=== PATIENT | female | born 1990 | race Asian ===

== ENCOUNTER 2018-04-30 02:26 | Emergency (ER) | payer SELFPAY ==
[2018-04-30 02:41] VITALS: TEMP 99.2; BMI 25.7
--- NOTE | 2018-04-30 02:45 | PDOC ---
Attending Attestation - Resident Resident Name: IgorNatasha - ED Attending Attestation I have performed the following: I have examined & evaluated the patient, The case was reviewed & discussed with the resident, I agree w/resident's findings & plan - HPI HPI: 04/30/18 06:28 Pt comes with heart racing and arm pain and anxiety. - Physicial Exam PE: 04/30/18 06:29 Agree with resident exam - Medical Decision Making 04/30/18 06:29 Cardiac enzymes, flu and labs normal. Pt appears well. Vitals normal. EKG NSR; she will be discharged and counselled Heart Score/ECG Review - ECG Intrepretation Rhythm: Regular Rhythm - [place]: Right [place] Deviation - P and AR Delta Wave(s) Present: No WPW: No - QRS Poor R Wave Progression: No Q Wave Present: No - ST and T Early Repolarization: No Non Specific ST-T Wave changes: No
--- NOTE | 2018-04-30 03:29 | PDOC ---
History of Present Illness - History of Present Illness Initial Comments: Cordelia Chou is a 27yo woman with a possible h/o anxiety (pt reports she has not been officially diagnosed with anxiety) who presents with racing heart and left chest, left arm discomfort that started acutely overnight. Ms Chou reports that she was laying in bed tonight having a snack when she suddenly felt like her heart was beating very quickly. She additionally felt that there was an unusual feeling in her left arm and left lateral chest, though she is unable to describe the sensation other than "uncomfortable." She denies any shortness of breath, lightheadedness, nausea/vomiting, or pain at the time. She does endorse recent subjective fevers, sore throat, and change in bowel habits over the past week; she states that she had some mild constipation last week, but she has had bowel urgency for the past few days. She has had one formed BM every other day, which is typical, but reports that they are "explosive." Ms Chou has not had a flu shot. She had a similar episode about 2 years ago and was told she had anxiety at that time. However, she has not followed up and has never been treated for anxiety or depression. <Natasha Costa - Last Filed: 04/30/18 05:31> <Trena Francis - Last Filed: 04/30/18 06:27> - General Chief Complaint: Irregular Heart Beat Stated Complaint: RAPID HEART BEAT/ARM PAIN Time Seen by Provider: 04/30/18 02:37 Past History - Past Medical History Anemia: Yes - Suicide/Smoking/Psychosocial Hx Smoking History: Never smoked Have you smoked in the past 12 months: No Information on smoking cessation initiated: No Hx Alcohol Use: No Drug/Substance Use Hx: No <Natasha Costa - Last Filed: 04/30/18 05:31> <Trena Francis - Last Filed: 04/30/18 06:27> - Past Medical History Allergies/Adverse Reactions: Allergies Allergy/AdvReac Type Severity Reaction Status Date / Time No Known Allergies Allergy Verified 04/30/18 02:39 Home Medications: Ambulatory Orders NK [No Known Home Medication] 03/03/16 Review of Systems - Review of Systems Comments:: General: No fevers, no chills, no weight or appetite change, no malaise HEENT: No changes in vision, no changes in hearing, no congestion. +sore throat CV: No chest pain, no LE edema. +Racing heart Pulm: No SOB, no wheezing. +cough GI: No nausea or vomiting, no melena. +urgency for one week : No frequency, no urgency, no dysuria Musc: No back pain, no joint swelling, no recent injury Skin: No rash, no lesions, no erythema Endo: No excessive thirst, no heat/cold intolerance Heme: No unusual bruising or bleeding, no swollen glands Neuro: No syncope, no numbness/tingling, no focal weakness Vasc: No claudication Psych: No recent change in mood, no SI or HI <IgorNatasha - Last Filed: 04/30/18 05:31> *Physical Exam - Vital Signs Last Vital Signs Temp Pulse Resp BP Pulse Ox 99.2 F 127 H 18 154/104 H 100 04/30/18 02:39 04/30/18 02:39 04/30/18 02:39 04/30/18 02:39 04/30/18 02:39 - Physical Exam Comments: General: Comfortable, no acute distress HEENT: PERRL, EOMI, MMM, voice normal, normal neck ROM, no LAD Cards: RRR, no murmur appreciated Pulm: Comfortable on room air, clear to auscultation bilaterally Abd: Soft, nontender, nondistended Ext: Atraumatic. No LE edema. ROM intact. Strength 5/5 and equal bilaterally Vasc: Extremities WWP. Palpable radial and pedal pulses bilaterally Skin: Normal color, no rashes or lesions Neuro: A&Ox3, CN grossly intact, normal speech, motor/sensory grossly intact and symmetric Psych: Mood appropriate to situation <Natasha Costa - Last Filed: 04/30/18 05:31> - Vital Signs Last Vital Signs Temp Pulse Resp BP Pulse Ox 99.2 F 89 18 133/88 98 04/30/18 02:39 04/30/18 05:35 04/30/18 05:35 04/30/18 05:35 04/30/18 05:35 <Trena Francis - Last Filed: 04/30/18 06:27> Moderate Sedation - Procedure Monitoring Vital Signs: Procedure Monitoring Vital Signs Temperature 99.2 F 04/30/18 02:39 Pulse Rate 127 H 04/30/18 02:39 Respiratory Rate 18 04/30/18 02:39 Blood Pressure 154/104 H 04/30/18 02:39 O2 Sat by Pulse Oximetry (%) 100 04/30/18 02:39 <Natasha Costa - Last Filed: 04/30/18 05:31> - Procedure Monitoring Vital Signs: Procedure Monitoring Vital Signs Temperature 99.2 F 04/30/18 02:39 Pulse Rate 89 04/30/18 05:35 Respiratory Rate 18 04/30/18 05:35 Blood Pressure 133/88 04/30/18 05:35 O2 Sat by Pulse Oximetry (%) 98 04/30/18 05:35 <Trena Francis - Last Filed: 04/30/18 06:27> ED Treatment Course - LABORATORY CBC & Chemistry Diagram: 04/30/18 03:25 04/30/18 03:25 <Natasha Cotsa - Last Filed: 04/30/18 05:31> - LABORATORY CBC & Chemistry Diagram: 04/30/18 03:25 04/30/18 03:25 - ADDITIONAL ORDERS Additional order review: Laboratory Results 04/30/18 04/30/18 03:25 03:25 Sodium 134 L Potassium 4.7 Chloride 99 Carbon Dioxide 26 Anion Gap 9 BUN 7 Creatinine 0.7 Creat Clearance w eGFR > 60 Random Glucose 97 Calcium 8.5 Total Bilirubin 0.3 AST 28 ALT 24 Alkaline Phosphatase 84 Creatine Kinase 64 Troponin I < 0.02 Total Protein 8.3 H Albumin 3.4 Beta HCG, Quant < 1.0 04/30/18 03:25 RBC 4.88 MCV 75.2 L MCHC 32.7 RDW 15.1 MPV 8.3 Neutrophils % 73.6 Lymphocytes % 16.4 Monocytes % 8.7 D Eosinophils % 0.8 Basophils % 0.5 <Trena Francis - Last Filed: 04/30/18 06:27> Medical Decision Making - Medical Decision Making 04/30/18 03:25 Cordelia Chou is an otherwise healthy 27yo who presents with racing heart that started acutely tonight. She also reports left sided chest and left arm discomfort, recent sore throat, and diarrhea for the past week. She was seen previously with similar symptoms and diagnosed with a panic attack. - Unlikely to be ACS given age and general state of health, but will check trop to r/o definitively - No h/o injury prior to discomfort starting. Ms Chou states she was in bed - Given report of recent respiratory symptoms, diarrhea, and now chest discomfort, will check flu swab - CXR to r/o abnormalities - CBC, CMP, bHCG for evaluation - EKG with NSR. - No labs for the past 2 years. 04/30/18 04:50 - Labs reviewed. No concerning abnormalities. Sodium slightly low at 134. - bHCG negative. Will send for xray - Feels better, sleeping comfortably - Likely to be discharged home 04/30/18 05:21 - CXR reviewed, no focal abnormalities - Vitals rechecked. BP 133/88, HR 89 - Discussed results with Ms Chou and her parents. Discussed follow up and home care. Feels ready to go home, will follow up with her PMD. Discussed with Dr Francis. Natasha Costa PGY1 <Natasha Costa - Last Filed: 04/30/18 05:31> *DC/Admit/Observation/Transfer <Natasha Costa - Last Filed: 04/30/18 05:31> <Trena Francis - Last Filed: 04/30/18 06:27> Diagnosis at time of Disposition: Tachycardia - Discharge Dispostion Disposition: HOME Condition at time of disposition: Improved - Referrals Referrals: Steph Wagner [Primary Care Provider] - - Patient Instructions Printed Discharge Instructions: DI for Anxiety -- Adult, DI for Tachycardia Additional Instructions: Discharge Instructions: You were seen in the emergency department for a fast heart rate at home. You had blood tests completed, and all of the results were normal. You also had an EKG to evaluate your heart, and it was also normal other than the fast heart rate (called tachycardia). A chest xray was taken, and there was no sign of pneumonia or other abnormalities found. Your fast heart rate may be due to anxiety, stress, caffeine, or a combination of factors. Home Care: - Limit you intake of caffeine if you feel your heart rate is fast - Keep track of what activities or situations make you feel like your heart is racing. - Try calming techniques such as deep breathing if you feel anxious Follow Up: - Make an appointment with your primary doctor for follow up within the next week - Consider establishing care with a therapist or psychiatrist if you continue to feel anxious. Your regular doctor may be able to refer you. - Seek immediate medical care if you have chest pain along with sweating, lightheadedness, nausea/vomiting, or shortness of breath, especially if the chest pain occurs during exercise. - Post Discharge Activity
[2018-04-30 03:39] LABS: BASO % 0.5 % (0-2.0); EOS % 0.8 % (0-4.5); HEMATOCRIT 36.7 % (32.4-45.2); LYMPH % 16.4 % (8-40); MCH 24.6 pg (25.7-33.7); MCHC 32.7 g/dl (32.0-36.0); MEAN CELL VOLUME 75.2 fl (80-96); MEAN PLT VOLUME 8.3 fl (7.5-11.1); MONO % 8.7 % (3.8-10.2); NEUT % 73.6 % (42.8-82.8); PLATELET COUNT 381 K/MM3 (134-434); RBC 4.88 M/mm3 (3.60-5.2); RDW 15.1 % (11.6-15.6); WHITE BLOOD COUNT 10.4 K/mm3 (4.0-10.0)
[2018-04-30 04:28] LABS: ALBUMIN 3.4 g/dl (3.4-5.0); ALK PHOS 84 U/L (45-117); ANION GAP 9 MMOL/L (8-16); BILIRUBIN,TOTAL 0.3 mg/dL (0.2-1); BLOOD UREA NITROGEN 7 mg/dL (7-18); CALCIUM 8.5 mg/dL (8.5-10.1); CHLORIDE 99 mmol/L (98-107); CO2 26 mmol/L (21-32); CREATININE 0.7 mg/dL (0.55-1.3); GLUCOSE,RANDOM 97 mg/dL (74-106); POTASSIUM 4.7 mmol/L (3.5-5.1); SGOT/AST 28 U/L (15-37); SGPT/ALT 24 U/L (13-61); SODIUM 134 mmol/L (136-145); TOT PROT 8.3 g/dl (6.4-8.2)
[2018-04-30 05:36] VITALS: BP 133/88; PULSE 89
--- NOTE | 2018-04-30 09:54 | EKG ---
Test Reason : Blood Pressure : / mmHG Vent. Rate : 113 BPM Atrial Rate : 113 BPM P-R Int : 114 ms QRS Dur : 076 ms QT Int : 320 ms P-R-T Axes : 000 140 175 degrees QTc Int : 438 ms SINUS TACHYCARDIA NONSPECIFIC T WAVE ABNORMALITY NO PREVIOUS ECGS AVAILABLE Confirmed by BRYCE RAYMUNDO MD ([id number]) on 04/30/2018 9:54:14 AM Referred By: Confirmed By:BRYCE RAYMUNDO MD
== END 2018-04-30 05:43 | disposition home or self-care (01) ==
LOC: JER 02:26
DX: R00.0 Tachycardia, unspecified (principal)
CPT/HCPCS: 36415; 71046-TC-FY; 80053; 82550; 84484; 84702; 85025; 87804; 93005; 93010; 99282-25

== ENCOUNTER 2021-11-28 20:27 | Emergency (ER) | payer OTHER ==
[2021-11-28 20:46] VITALS: BP 147/94; PULSE 99; TEMP 98.4; BMI 31.1
[2021-11-28] MEDS ORDERED: diphenhydrAMINE HCL 25 MG CAPSULE (FP) PO ONE ×2 (21:31→21:57)
== END 2021-11-28 21:58 | disposition home or self-care (01) ==
LOC: JER 20:27
DX: L50.0 Allergic urticaria (principal)
CPT/HCPCS: 99283-25

== ENCOUNTER 2024-01-08 03:54 | Observation (INO) | payer OTHER ==
[2024-01-08 04:09] VITALS: BMI 28.3
[2024-01-08] MEDS: SODIUM CHLORIDE 0.9% 500 ML INFUS.BAG IV ONE (04:43)
[2024-01-08 04:52] LABS: BASO % 1.1 % (0-2.0); EOS % 2.4 % (0-4.5); HEMATOCRIT 42.7 % (32.4-45.2); HEMOGLOBIN 13.8 GM/dL (10.7-15.3); LYMPH % 33.5 % (8-40); MCH 25.5 pg (25.7-33.7); MCHC 32.3 g/dl (32.0-36.0); MONO % 5.5 % (3.8-10.2); NEUT % 57.5 % (42.8-82.8); PLATELET COUNT 576 10^3/uL (134-434); RBC 5.41 M/mm3 (3.60-5.2); RDW 14.2 % (11.6-15.6)
[2024-01-08 05:15] LABS: POTASSIUM 3.8 mmol/L (3.5-5.1)
[2024-01-08 05:17] LABS: CALCIUM 9.5 mg/dL (8.5-10.1)
[2024-01-08 05:18] LABS: ALBUMIN 3.8 g/dl (3.4-5.0); BLOOD UREA NITROGEN 8.6 mg/dL (7-18)
[2024-01-08 05:21] LABS: CREATININE 0.7 mg/dL (0.55-1.3)
[2024-01-08 05:22] LABS: BILIRUBIN,TOTAL 0.4 mg/dL (0.2-1); TOT PROT 8.5 g/dl (6.4-8.2)
[2024-01-08 06:57] LABS: EPI CELLS 11 /uL (0-25.1); HYALINE CASTS 0 /uL (0-3.1); PH,URINE 6.5 (5.0-8.0); URINE APPEARANCE CLEAR; URINE BACTERIA 173 /uL (0-1359); URINE BILIRUBIN NEGATIVE (NEGATIVE); URINE COLOR YELLOW; URINE GLUCOSE (UA) NEGATIVE (NEGATIVE); URINE KETONE TRACE (NEGATIVE); URINE LEUK ESTERASE 2+ (NEGATIVE); URINE NITRITE NEGATIVE (NEGATIVE); URINE PROTEIN NEGATIVE (NEGATIVE); URINE RBC 5 /uL (0-23.9); URINE UROBILINOGEN 0.2 mg/dL (0.2-1.0); URINE WBC 64 /uL (0-25.8)
[2024-01-08] MEDS ORDERED: CEFTRIAXONE 1 GM/50 ML BAG ONE (08:23)
[2024-01-08] MEDS: CEFTRIAXONE 1 GM in DEXTROSE 5%-WATER - 100 ML IVPB ONE (09:10)
[2024-01-08] MEDS: SODIUM CHLORIDE 1,000 ML IV STA (10:30)
[2024-01-08 11:41] LABS: OPIATES, URI NEGATIVE (NEGATIVE)
[2024-01-08 11:42] LABS: PHENCYCLIDINE,URINE NEGATIVE (NEGATIVE); URINE BARBITURATES NEGATIVE (NEGATIVE)
[2024-01-08 11:45] LABS: COCAINE, UR NEGATIVE (NEGATIVE); METHADONE, UR NEGATIVE (NEGATIVE); URINE AMPHETAMINES NEGATIVE (NEGATIVE); URINE BENZODIAZEPINES NEGATIVE (NEGATIVE)
[2024-01-08] MEDS ORDERED: metoPROLOL SUCCINATE 25 MG TAB.SR.24H (FP) PO ONE (12:55)
[2024-01-08] MEDS: metoPROLOL SUCCINATE 25 MG TAB.SR.24H (FP) PO SCH (13:04)
[2024-01-08 16:19] VITALS: BP 134/92; PULSE 85; RESP 18; TEMP 98
[2024-01-09] MEDS ORDERED: amLODIPine BESYLATE 10 MG TABLET (FP) PO SCH (10:00)
[2024-01-09] MEDS ORDERED: PARoxetine HCL 20 MG TABLET PO SCH (10:00)
[2024-01-09] MEDS ORDERED: ENOXAPARIN NA (PORCINE) 40 MG/0.4 ML DISP.SYRIN SQ SCH (10:00)
== END 2024-01-08 16:25 | disposition home or self-care (01) ==
LOC: JER 03:54 → JERBED 09:49 → INTOOBSV 09:49 → UNDOADMOB 09:49 → JERBED 10:29
PROVIDERS: ADMIT Internal Medicine; ATTEND Internal Medicine
PROC: 3E03329 Introduction of Other Anti-infective into Peripheral Vein, Percutaneous Approach (ICD-10-PCS; principal; 2024-01-08)
PROC: 3E0337Z Introduction of Electrolytic and Water Balance Substance into Peripheral Vein, Percutaneous Approach (ICD-10-PCS; 2024-01-08)
DX: F41.9 Anxiety disorder, unspecified (principal); I10 Essential (primary) hypertension; E03.9 Hypothyroidism, unspecified; R00.2 Palpitations; R00.0 Tachycardia, unspecified
CPT/HCPCS: 0241U-QW; 36415; 71045-TC-FY; 71275-TC; 80053; 80307; 81003; 84439; 84443; 84480; 84703; 85025; 87077; 87086; 87186; 93005; 93010; 96361; 96365; 99285-25; G0378